=== PATIENT | female | born 2005 | race Caucasian/White ===

== ENCOUNTER 2024-02-13 02:16 | Emergency (ER) | payer OTHER, SELFPAY ==
[2024-02-13 02:19] VITALS: BP 119/83; PULSE 77; RESP 20; TEMP 36.6; O2SAT 99; BMI 20.2
[2024-02-13 02:53] LABS: IDNOW Serial# 58CA691E; Strep A Nucleic Acid Negative (Negative)
--- NOTE | 2024-02-13 03:37 | ED.URI ---
HPI - URI/Sore Throat General Chief Complaint: Upper Respiratory Symptoms Stated Complaint: feels like something stuck in throat Time Seen by Provider: 02/13/24 03:09 Source: patient Mode of arrival: ambulatory Limitations: no limitations History of Present Illness ED Provider: HPI Narrative: Patient is about 6 weeks noticed small lymph node left upper cervical area for last few days very anxious well some throat pain earlier none now no earache no skin lesion Related Data Allergies Allergy/AdvReac Type Severity Reaction Status Date / Time dog dander [dogs] Allergy Runny Nose Verified 02/13/24 02:24 Review of Systems Review of Systems: Yes all other systems are reviewed and are negative PMFSH Social History Social History Advance Directives: No Advance Directives Information Provided: Yes Physical Exam Vital Signs: Vital Signs: Last Vital Signs Temp 97.9 F 02/13/24 02:19 Pulse 77 02/13/24 02:19 Resp 20 02/13/24 02:19 BP 119/83 02/13/24 02:19 Pulse Ox 99 02/13/24 02:19 O2 Del Method Room Air 02/13/24 02:19 BMI result Body Mass Index 20.2 Appearance: Alert. Oriented X3. No acute distress. ENT: Pharynx normal. Oral Mucosa moist Neck: Normal inspection. Neck supple. CVS: Normal heart rate and rhythm. Pulses normal. Respiratory: No respiratory distress. Equal air entry bilateral, no wheezing/rales/rhonchi Skin: Skin warm and dry. Normal skin color. Normal skin turgor. Extremities: No lower extremity edema. Neuro: Oriented X 3. HEENT: Face images: 1. 1 x 1 cm small upper cervical lymph node slightly tender no erythema no signs of infection Medical Decision Making Lab Data MDM Lab Attestation statement: I reviewed the patient's lab results. Labs: Lab Results 02/13/24 02/13/24 Range/Units 02:29 03:06 Influenza Type A (PCR) NEGATIVE (Negative) Influenza Type B (PCR) NEGATIVE (Negative) RSV RNA Qual (PCR) NEGATIVE (Negative) SARS-CoV-2 RNA (RT-PCR) NEGATIVE (Negative) S. pyogenes GrpA COLLEEN Negative (Negative) Discharge Plan Discharge Clinical Impression: Lymph nodes enlarged Patient Disposition: Home, Self-Care Instructions: Lymphadenopathy (ED) Additional Instructions: Likely you have enlarged lymph node from inflammation no signs of infection seen at this time Your strep test is negative Follow with the PCP if get further enlarged Tylenol for pain Print Language: [place]
[2024-02-13 03:49] LABS: Influenza A PCR NEGATIVE (Negative); Influenza B PCR NEGATIVE (Negative); Resp Syncy Virus RNA Qual PCR NEGATIVE (Negative); SARS COV2 PCR INHOUSE NEGATIVE (Negative)
[2024-02-13 04:00] VITALS: BP 119/83; PULSE 77; RESP 20; TEMP 36.6; O2SAT 99
== END 2024-02-13 04:02 | disposition home or self-care (01) ==
PROVIDERS: Emergency Provider Internal Medicine
DX: O26.899 Other specified pregnancy related conditions, unspecified trimester (principal); R59.0 Localized enlarged lymph nodes; R07.0 Pain in throat; Z03.818 Encounter for observation for suspected exposure to other biological agents ruled out
CPT/HCPCS: 0241U; 87651; 99282; 99283

== ENCOUNTER 2024-02-15 01:37 | Emergency (ER) | payer OTHER, SELFPAY ==
[2024-02-15 01:41] VITALS: BP 109/70; PULSE 78; RESP 14; TEMP 36.8; O2SAT 99; BMI 20.8
[2024-02-15 02:11] LABS: Basophils Percent Auto 0.5 % (0-2); Eosinophils Absolute Auto 0.6 X10*3/uL (0.0-0.4); Eosinophils Percent Auto 8.2 % (0-4); Hematocrit 38.9 % (37.0-47.0); Hemoglobin 13.8 g/dl (12.0-16.0); Imm Gran Abs Auto 0.01 X10*3/uL (0.00-0.03); Imm Gran Pct Auto 0.1 % (0.0-0.4); Lymphocytes Absolute Auto 2.9 X10*3/uL (1.2-4.9); Lymphocytes Percent Auto 37.6 % (20-40); MANUAL DIFF FLAG NO; Mean Corpuscular HGB Conc 35.5 g/dl (31.0-35.0); Mean Corpuscular Hemoglobin 29.9 pg (27.0-33.0); Mean Corpuscular Volume 84.2 fL (80.0-98.0); Mean Platelet Volume 10.2 fL (9.4-12.3); Monocytes Absolute Auto 0.7 X10*3/uL (0.1-1.2); Monocytes Percent Auto 8.5 % (2-11); Neutrophils Absolute Auto 3.5 x10*3/uL (2.0-8.3); Neutrophils Percent Auto 45.1 % (45-73); Platelet Count 301 X10*3/uL (160-400); Red Blood Count 4.62 X10*6/uL (4.20-5.50); White Blood Count 7.7 X10*3/uL (4.8-10.8)
--- NOTE | 2024-02-15 02:18 | ED_ITS ---
HPI - Abdominal Pain General Chief Complaint: Abdominal Pain Stated Complaint: abd pain Time Seen by Provider: 02/15/24 02:09 Source: patient Mode of arrival: ambulatory Limitations: no limitations History of Present Illness ED Provider: Dr. Tabatha Hernandez HPI narrative: Patient comes to the emergency room complaining of nausea and abdominal pain. Patient states that she was recently seen several times at [facility], wants because she was having left lower quadrant pain. Patient states that her the up work was unremarkable other than an hCG of 4. Seems that at that time patient was having vaginal bleeding. Patient was asked to return to [facility] 48 hours later for a repeat HCG which she did. Patient states that the 2nd time the hCG count was negative. Patient states that she is no longer bleeding. Patient states that she has abdominal pain, states it starts in the left lower quadrant radiates towards the epigastric area and then radiates towards the umbilicus. Patient denies vaginal bleeding, denies vomiting or diarrhea, only complaining of nausea. Admits that she has been using marijuana Related Data Previous Rx's ?Medication ?Instructions ?Recorded ondansetron 4 mg disintegrating 4 mg PO Q6H PRN nausea and 02/15/24 tablet vomiting #14 tabs Allergies Allergy/AdvReac Type Severity Reaction Status Date / Time dog dander [dogs] Allergy Runny Nose Verified 02/15/24 01:46 Review of Systems Review of Systems Constitutional : No Weight loss, No Fever, No Chills, No Night Sweats, No Fatigue, No Malaise ENT/Mouth : No Hearing loss, No Ear Pain, No Nasal Congestion, No Sinus Pain, No Hoarseness, No sore throat, No Rhinorrhea, No Swallowing Difficulty Eyes: No Eye Pain, No Swelling, No Redness, No Foreign Body, No Discharge, No Vision Changes Cardiovascular : No Chest Pain, No SOB, No Dyspnea on Exertion, No Orthopnea, No Edema, No Palpitations Respiratory : No Cough, No Sputum, No Wheezing, No Smoke Exposure, No Dyspnea Gastrointestinal : Complaining of Nausea, No Vomiting, No Diarrhea, No Constipation, complaining of abdominal pain Genitourinary : no irregular bleeding, No Dysuria, No Urinary Frequency, No Hematuria, No Urinary Incontinence, No Urgency, No Flank Pain, No Urinary Flow Changes, No Hesitancy Musculoskeletal : No joint pain, No Myalgias, No Joint Swelling Skin : No Skin Lesions, No rash Neuro : No Weakness, No Numbness, No Paresthesias, No Loss of Consciousness, No Dizziness, No Headache Psych : No Anxiety/Panic, No Depression, No SI/HI/AH/VH, No Social Issues, Heme/Lymph: No Bruising, No Bleeding,No Lymphadenopathy Endocrine : No Polyuria, No Polydipsia, No Temperature Intolerance PMFSH Social History Social History Advance Directives: No Advance Directives Information Provided: No Do you have a plan to hurt others: No Plan Physical Exam ED Vital Signs: Vital Signs - 24 hr 02/15/24 01:41 Temperature 98.2 F Pulse Rate 78 Respiratory Rate 14 Blood Pressure 109/70 Pulse Oximetry 99 Oxygen Delivery Method Room Air BMI result Body Mass Index 20.8 Const Other: Appearance: Alert. Oriented X3. Bizarre affect, scratching all over Eyes: Pupils equal, round and reactive to light. ENT: Pharynx normal. Neck: Normal inspection. Neck supple. No lymph nodes noted. No crepitus CVS: Normal heart rate and rhythm. Pulses normal. Normal S1 and S2 Respiratory: No respiratory distress. Breath sounds normal. No Wheezing. No rales Abdomen: Soft and nontender. No rigidity. No distention. Skin: Skin warm and dry. Normal skin color. Normal skin turgor. Extremities: No lower extremity edema. No Lacerations. No Rash Neuro: Oriented X 3. No motor deficit. No sensory deficit. Moving all extremities. No slurred speech. CN 2 through 12 grossly intact Psych: calm, cooperative, normal affect Course Course Course Narrative: On physical exam, patient did not have any tenderness in any of the quadrants. -patient denies spotting or vaginal bleeding at this time. -patient's labs pending Medical Decision Making Medical Decision Making MDM Narrative: Physical exam is reassuring, patient did not have any abdominal pain. Patient's hematology within normal limits, chemistry within normal limits, LFTs normal, lipase normal, hCG negative Urinalysis a very small amount of blood. Toxicology positive for hCG. In the emergency room, patient has not vomited. Patient is well-appearing. CT scan was considered but given that the patient is doing well, feeling better and not having abdominal pain, it is not indicated at this time. Differential Diagnosis Differential Diagnoses: The differential diagnosis associated with the presentation includes (Viral syndrome, THC side-effect) Lab Data MDM Lab Attestation statement: I reviewed the patient's lab results. 02/15/24 02:07 02/15/24 02:06 Labs: Lab Results 02/15/24 02/15/24 02/15/24 Range/Units 02:06 02:07 02:23 WBC 7.7 (4.8-10.8) X10*3/uL RBC 4.62 (4.20-5.50) X10*6/uL Hgb 13.8 (12.0-16.0) g/dl Hct 38.9 (37.0-47.0) % MCV 84.2 (80.0-98.0) fL MCH 29.9 (27.0-33.0) pg MCHC 35.5 H (31.0-35.0) g/dl RDW 12.0 (11.0-16.0) % Plt Count 301 (160-400) X10*3/uL MPV 10.2 (9.4-12.3) fL Immature Gran % (Auto) 0.1 (0.0-0.4) % Neut % (Auto) 45.1 (45-73) % Lymph % (Auto) 37.6 (20-40) % [place] % (Auto) 8.5 (2-11) % Eos % (Auto) 8.2 H (0-4) % Baso % (Auto) 0.5 (0-2) % Lymph # (Auto) 2.9 (1.2-4.9) X10*3/uL [place] # (Auto) 0.7 (0.1-1.2) X10*3/uL Eos # (Auto) 0.6 H (0.0-0.4) X10*3/uL Baso # (Auto) 0.0 (0.0-0.2) X10*3/uL Abs Immat Gran (auto) 0.01 (0.00-0.03) X10*3/uL Absolute Neuts (auto) 3.5 (2.0-8.3) x10*3/uL Absolute Nucleated RBC 0.000 (0.0-0.012) X10*3/uL Nucleated RBC % (auto) 0.0 (0.0-0.2) /100WBC Sodium 140 (135-145) mmol/L Potassium 3.9 (3.3-5.1) mmol/L Chloride 111 H (96-108) mmol/L Carbon Dioxide 20 L (22-29) mmol/L Anion Gap 13 (12-20) BUN 14 (9-16) mg/dL Creatinine 0.74 (0.5-1.4) mg/dL Estim Creat Clear Calc 111.9 Estimated GFR > 60 Random Glucose 119 H (60-115) mg/dL Calcium 9.0 (8.4-10.2) mg/dL Total Bilirubin 0.2 (0.0-1.0) mg/dL AST 16 (5-31) U/L ALT 10 (0-31) U/L Alkaline Phosphatase 66 (39-117) U/L Total Protein 7.2 (6.5-8.0) g/dL Albumin 4.1 (3.5-5.0) g/dL Lipase 22 (8-78) U/L Beta HCG, Quant < 2 mIU/mL Urine Color Yellow Urine Appearance Clear Urine pH 6.5 (5.0-9.0) Ur Specific [place]ell 1.015 (1.005-1.025) Urine Protein Negative (Neg-Trace) mg/dL Urine Glucose (UA) Negative (Negative) mg/dL Urine Ketones Negative (Negative) mg/dL Urine Blood Small (1+) H (Negative) Urine Nitrite Negative (Negative) Ur Leukocyte Esterase Negative (Negative) Urine RBC 0-2 (0-2) /HPF Urine WBC 0-5 (0-5) /HPF Ur Squamous Epith Cells 3-5 (0-2) /HPF Urine Bacteria None Seen (None Seen) Hyaline Casts 0-2 (0-2) /LPF Urine Opiates Screen Not Detected (Not Detect) Ur Buprenorphine Scrn Not Detected (Not Detect) ng/mL Ur Oxycodone Screen Not Detected (Not Detect) ng/mL Urine Methadone Screen Not Detected (Not Detect) ng/mL Urine Fentanyl Screen Not Detected (Not Detect) Ur Barbiturates Screen Not Detected (Not Detect) Ur Phencyclidine Scrn Not Detected (Not Detect) Ur Amphetamines Screen Not Detected (Not Detect) U Benzodiazepines Scrn Not Detected (Not Detect) Urine Cocaine Screen Not Detected (Not Detect) U Marijuana (THC) Screen POSITIVE H (Not Detect) Medications Administered Discontinued Medications Generic Name Dose Route Start Last Admin Trade Name Sonny PRN Reason Stop Dose Admin Ondansetron HCl 4 mg 02/15/24 02:18 02/15/24 02:40 Ondansetron Odt 4 Mg Tab.Rapdis TRANSLINGU 02/15/24 02:19 4 mg ONCE ONE Administration Discharge Plan Discharge Clinical Impression: Nausea Patient Disposition: Home, Self-Care Instructions: Acute Nausea and Vomiting (ED) Additional Instructions: Please follow-up with your primary care physician tomorrow. If you have any worsening or new symptoms, please return to the emergency room or call 911 Prescriptions: New ondansetron 4 mg tablet,disintegrating 4 mg PO Q6H PRN (Reason: nausea and vomiting) Qty: 14 0RF Print Language: Georgian
--- NOTE | 2024-02-15 02:18 | PC.NURSE ---
pt from home, a&ox4, respirations even and unlabored. pt reports on friday she found out she was , reports she was seen for increased vaginal bleeding at [facility] and reports she had a miscarriage. pt reports today she expierenced sudden onset lower abdominal pain, nausea. pt denies v/d. pt reports she followed up with [facility] where her HCG was 4.
[2024-02-15 02:35] LABS: Albumin Level 4.1 g/dL (3.5-5.0); Anion Gap 13 (12-20); Aspartate Amino Transferase 16 U/L (5-31); Bilirubin Total 0.2 mg/dL (0.0-1.0); Blood Urea Nitrogen 14 mg/dL (9-16); Carbon Dioxide 20 mmol/L (22-29); Chloride 111 mmol/L (96-108); Creatinine Clr Calc Pharmacy 111.9; Estimated Glomerular Filt Rate > 60; Glucose Random 119 mg/dL (60-115); Lipase 22 U/L (8-78); Potassium 3.9 mmol/L (3.3-5.1); Sodium 140 mmol/L (135-145); Total Protein 7.2 g/dL (6.5-8.0)
[2024-02-15 02:36] LABS: HCG Quantitative < 2 mIU/mL
[2024-02-15 02:38] LABS: Appearance Urine Clear; Color Urine Yellow; Glucose Urine UA Negative (Negative); Leukocyte Esterase Urine Negative (Negative); Nitrite Urine Negative (Negative); PH 6.5 (5.0-9.0); Specific Gravity - Urine 1.015 (1.005-1.025); UMIC TRIGGER UACC YES; Urine Blood Small (1+) (Negative); Urine Ketones Negative (Negative); Urine Protein Negative (Neg-Trace)
[2024-02-15] MEDS: Ondansetron ODT 4 MG TAB.RAPDIS TRANSLINGU (02:40)
[2024-02-15 03:02] LABS: Alanine Aminotransferase 10 U/L (0-31); Alkaline Phosphatase 66 U/L (39-117)
[2024-02-15 03:22] LABS: Bacteria Urine None Seen (None Seen); Hyaline Casts Urine 0-2 /LPF (0-2); RBC Urine 0-2 /HPF (0-2); WBC Urine 0-5 /HPF (0-5)
[2024-02-15 03:47] LABS: Amphetamine Screen Urine Not Detected (Not Detect); Barbiturates, Urine Not Detected (Not Detect); Benzodiazepines Screen Urine Not Detected (Not Detect); Buprenorphine Scr Not Detected (Not Detect); Cannabinoid Screen Urine POSITIVE (Not Detect); Cocaine Screen Urine Not Detected (Not Detect); Fentanyl, urine Not Detected (Not Detect); Methadone Screen, Urine Not Detected (Not Detect); Opiate Screen Urine Not Detected (Not Detect); Oxycodone Screen Urine Not Detected (Not Detect); Phencyclidine Screen Urine Not Detected (Not Detect)
[2024-02-15 04:00] VITALS: BP 102/63; PULSE 66; RESP 14; TEMP 36.7; O2SAT 96
[2024-02-15 04:02] VITALS: BP 102/63; PULSE 66; RESP 14; TEMP 36.7; O2SAT 96
== END 2024-02-15 04:03 | disposition home or self-care (01) ==
PROVIDERS: Emergency Provider Emergency Medicine
DX: R10.2 Pelvic and perineal pain (principal); R11.2 Nausea with vomiting, unspecified; R10.32 Left lower quadrant pain; F12.90 Cannabis use, unspecified, uncomplicated; Z51.81 Encounter for therapeutic drug level monitoring; Z79.899 Other long term (current) drug therapy
CPT/HCPCS: 36415; 80053; 80307; 81001; 83690; 84702; 85025; 99284